=== PATIENT | female | born 2000 | race Caucasian/White ===

== ENCOUNTER 2024-11-05 10:03 | Emergency (ER) | payer OTHER ==
[~2024-11-05] VITALS: Ht 157.5 cm; Wt 67.6 kg
[2024-11-05 11:20] LABS: KETONE, URINE AUTO RFX NEGATIVE (NEGATIVE); LEUKOCYTE ESTERASE UR AUTO RFX 2+ (NEGATIVE); NITRITE, URINE AUTO RFX NEGATIVE (NEGATIVE); RBC, URINE AUTO RFX 14 /HPF (0-3); SQUAM EPITHELIAL CELL UR AURFX 12 /HPF (0-6); WBC, URINE AUTO RFX 143 /HPF (0-3)
[2024-11-05] MEDS ORDERED: CIPR500T39 PO (12:06)
[2024-11-05 12:10] VITALS: BP 113/74; TEMP 98.2; O2SAT 100
== END 2024-11-05 12:20 | disposition home or self-care (01) ==
LOC: M ED 10:03
DX: N30.00 Acute cystitis without hematuria (principal); Z91.040 Latex allergy status; Z79.2 Long term (current) use of antibiotics

== ENCOUNTER 2024-11-13 08:20 | Emergency (ER) | payer OTHER ==
[~2024-11-13] VITALS: Ht 157.5 cm; Wt 69.0 kg
[~2024-11-13 08:20] MED LIST: CIPR500T39 PO
[2024-11-13 09:26] LABS: KETONE, URINE AUTO RFX NEGATIVE (NEGATIVE); MUCUS, URINE RFX SMALL (NEGATIVE); NITRITE, URINE AUTO RFX NEGATIVE (NEGATIVE); RBC, URINE AUTO RFX 17 /HPF (0-3); SQUAM EPITHELIAL CELL UR AURFX 12 /HPF (0-6)
[2024-11-13 10:29] LABS: Trichomonas vaginalis (AMP) NOT DETECTED (NEGATIVE)
[2024-11-13 10:43] LABS: LEUKOCYTE ESTERASE UR AUTO RFX 3+ (NEGATIVE); WBC, URINE AUTO RFX TNTC /HPF (0-3)
[2024-11-13 10:53] LABS: GC DNA AMPLIFICATION NEGATIVE (NEGATIVE)
[2024-11-13] MEDS ORDERED: PYRI1TAB5 PO (10:59)
[2024-11-13 11:09] VITALS: BP 131/61; TEMP 97.7; O2SAT 100
== END 2024-11-13 11:11 | disposition home or self-care (01) ==
LOC: M ED 08:20
DX: R30.0 Dysuria (principal); Z91.040 Latex allergy status; Z79.899 Other long term (current) drug therapy